=== PATIENT | female | born 1930 | race Caucasian/White ===

== ENCOUNTER 2018-04-15 11:23 | Inpatient (IN) | payer MEDICARE, OTHER ==
[2018-04-15 12:10] LABS: #Basophils 0.1 thou/uL (0.0-0.2); #Eosinphils 0.2 thou/uL (0.0-0.7); #Lymphocytes 2.7 thou/uL (1.20-3.40); #Monocytes 0.5 thou/uL (0.11-0.59); #Neutrophils 3.3 thou/uL (1.40-6.50); %Basophils 1.1 % (0.0-1.0); %Eosinophils 3.1 % (0.0-10.0); %Lymphocytes 40.1 % (21.0-51.0); %Neutrophils 48.7 % (42.0-75.0); Hemoglobin 11.7 g/dL (12.0-16.0); Mean Corpuscular HGB CONC 33.3 g/dL (32.0-36.0); Mean Corpuscular Hemoglobin 29.9 pg (27.0-31.0); Mean Corpuscular Volume 89.9 fL (78.0-98.0); Mean Platelet Volume 7.3 fL (7.4-10.4); Platelet Count 281 thou/uL (130-400); RBC Distribution Width 12.8 % (11.5-14.5); White Blood Cell (WBC) Count 6.9 thou/uL (4.8-10.8)
[2018-04-15 12:39] LABS: CKMB 1.8 ng/mL (0-6.6); Troponin I 0.035 ng/mL (< 0.028)
[2018-04-15 12:40] LABS: ALT (SGPT) 12 U/L (8-55); AST (SGOT) 21 U/L (5-34); Alkaline Phosphatase 115 U/L (40-150); Anion Gap 16 mmol/L (10-20); BUN (Urea Nitrogen) 18 mg/dL (9.8-20.1); Bilirubin, Total 0.4 mg/dL (0.2-1.2); Calc. Creatinine Clearance 0 mL/min (70-130); Calcium 9.2 mg/dL (7.8-10.44); Carbon Dioxide 19 mmol/L (23-31); Chloride 106 mmol/L (98-107); Estimated GFR-MDRD 57; Globulin 3.4 g/dL (2.4-3.5); Glucose 121 mg/dL (83-110); Potassium 4.4 mmol/L (3.5-5.1); Protein, Total 7.4 g/dL (6.0-8.3); Sodium 137 mmol/L (136-145)
--- NOTE | 2018-04-15 13:09 | CT ---
CT BRAIN WITHOUT CONTRAST: Date: 04/15/18 HISTORY: Unwitnessed fall, hit head, pain in back of head. FINDINGS: Comparison made with exam dated 09/02/16. Changes of cortical atrophy and chronic small vessel ischemic disease are again seen. The ventricular size is appropriate and the basilar cisterns are patent. No evidence of acute infarct, hemorrhage, m idline shift, or abnormal extra-axial fluid collections are seen. The bony calvarium is intact. A sca lp contusion is seen in the right posterior parietal region. IMPRESSION: No CT evidence of acute intracranial process. POS: [facility]
[2018-04-15 14:48] VITALS: BMI 25.6
[2018-04-15] MEDS ORDERED: Acetaminophen 325 MG TAB PO PRN (15:09)
[2018-04-15 16:00] LABS: Troponin I 0.056 ng/mL (< 0.028)
--- NOTE | 2018-04-15 16:39 | PDOC.EVN ---
Event Note - Event Note Event Note: patient moted to be in AV block by shelter monitor. transfer to CCU, spoke with Dr Gomez at bedside
--- NOTE | 2018-04-15 16:51 | ULT ---
CAROTID DOPPLER: Date: 04/15/18 Color Doppler with spectral analysis and velocity recordings were obtained on the extracranial caroti d arteries. INDICATION: TIA. FINDINGS: Ultrasound images show mild intimal thickening and echogenic plaque in both proximal ICAs. Velocity recordings are within normal range. No evidence of hemodynamically significant stenosis iden tified in either internal carotid artery. Vertebral arteries show antegrade flow. IMPRESSION: 1. Mild intimal thickening and echogenic plaque bilaterally. 2. No evidence of hemodynamically significant stenosis. POS: [facility]
--- NOTE | 2018-04-15 17:40 | PDOC.EVN ---
Event Note - Event Note Event Note: Prior events noted. Stable in CCU on external pacer. Discussed with patient and patient's daughter. Anticipate PPM in am.
[2018-04-15 18:03] LABS: Thyroid Stimulating Hormone 1.2645 uIU/mL (0.35-4.94)
[2018-04-15 18:04] LABS: T4 8.4 ug/dL (4.87-11.72)
[2018-04-15] MEDS: Dextrose 5 %-0.45 % NaCl 1,000 ML IV SCH (18:09)
[2018-04-15 18:35] VITALS: BP 147/74
[2018-04-15 19:08] LABS: Troponin I 0.067 ng/mL (< 0.028)
--- NOTE | 2018-04-15 21:37 | HP ---
CHIEF COMPLAINT: Fall. HISTORY OF PRESENT ILLNESS: This patient is an 88-year-old female who lives at the [facility]. She is in the assisted living portion. The patient was at her meal this morning and stood up fro m her chair and fell backwards back into her chair and bumping the back of her head up against a ston e wall. The patient reports that she did not lose consciousness at any point, although she was a bit stunned. She did feel a little dizzy or nauseated as soon as she bumped her head, but that resolved fairly quickly. shelter staff that there reported that she did not have any seizure type activ ity. EMS was called and the patient was brought to the hospital. She has no headache, chest pain, p alpitations, shortness of breath or other associated symptoms. REVIEW OF SYSTEMS: Completely negative. PAST MEDICAL HISTORY: Notable for TIA around 2011. She had a full workup at [facility] in [place] at th at time. There were no significant findings. She has hyperlipidemia, hypertension, hypothyroidism, some chronic vertigo. PAST SURGICAL HISTORY: Total hysterectomy, toe amputation, hiatal hernia repair, bladder suspension, hip replacement. FAMILY HISTORY: Not known. SOCIAL HISTORY: Patient is a nonsmoker and nondrinker. She lives at the [facility]. Her surroga te decision maker would be her daughter. She would like to be FULL CODE. Her physician is Dr. Jose carter. ALLERGIES: CODEINE, ERYTHROMYCIN BASE, MECLIZINE, PENICILLIN, PREDNISONE and SULFA. HOME MEDICATIONS: Still need to be confirmed with the senior living, but appeared to be aspirin 81 mg every day, levothyroxine 75 mcg every day, Lipitor 10 mg daily, omeprazole 40 mg every day, Zoloft 2 5 mg daily, Zyrtec 10 mg every day, Zantac 150 mg daily, magnesium oxide 2 p.o. daily, Lastacaft 0.25 % ophthalmic drops 2 drops both eyes every day, Dexilant 60 mg p.o. every day, azelastine spray pump 2 sprays both nostrils at bedtime. PHYSICAL EXAMINATION: VITAL SIGNS: Temperature is 97.9, pulse 88, respirations 20, O2 sat 96% on room air, BP is 188/78. GENERAL APPEARANCE: Age appropriate female, in no distress. She is awake, alert, oriented, pleasant , cooperative, mildly hard of hearing. HEENT: Reveals a 10 x 4 cm superficial hematoma on the right posterior scalp that is slightly tender . Pupils are equal and reactive. She has no OP lesions. NECK: Supple and symmetric. HEART: Regular rate and rhythm without murmurs, gallops or rubs. LUNGS: Clear to auscultation bilaterally with good chest wall expansion and air exchange. ABDOMEN: Flat, soft, nontender, nondistended, positive bowel sounds. EXTREMITIES: Warm and dry. NEUROLOGIC: The patient appears to be fully cognitive and appropriate. She has normal range of tee on and normal sensation and strength throughout and cranial nerves are intact. LABORATORY DATA AND IMAGING DATA: White count 6.9, hemoglobin 11.7, platelets 281. Sodium 137, pota ssium 4.4, chloride 106, CO2 19, BUN 18, creatinine 0.93, glucose 121. Troponin 0.35. BNP 246. EKG shows sinus rhythm, first degree AV block. ASSESSMENT AND PLAN: 1. Fall. It sounds like the patient simply fell from having some balance issues. That is where she believes happened. Given that there were no seizure activities and she did not lose consciousness, did not feel near syncopal, I suspect this is largely the case. We will go ahead and keep the patien t on a analytics lead. We will obtain echocardiogram and carotid Dopplers. It is possible this w as a TIA and needs to be appropriately evaluated. 2. Contusion to the posterior scalp secondary to fall injury. We will do serial neuro exams. I did discuss with the patient and her daughter the need to be concerned regarding subdural hematomas for the next couple of weeks. Fortunately, the patient is not on blood thinner medications. I need to c larify also the patient may be taking a low dose aspirin which is not significant more pending. 3. Hyperlipidemia. Continue with her usual home medications. 4. Hypothyroidism. Her TSH was reasonably good and likely not contributory to the current admission ; however, we will continue with her usual dose.
--- NOTE | 2018-04-15 23:58 | CON ---
DATE OF CONSULT: 04/15/18 HISTORY OF PRESENT ILLNESS: This is an 88-year-old woman, who presented with syncope. The patient has no previous cardiac history. She was apparently in her usual state of health when she suddenly fell down. She does not remember losing consciousness. The patient was brought to the hospital and admitted for further evaluation. During her hospitalization, the patient again became weak and was noted to have developed a slow heart rate. The patient did not completely lose consciousness. The patient denied having any chest pain or palpitations. PAST MEDICAL HISTORY: 1. Hypothyroidism. 2. GE reflux or dyslipidemia. PAST SURGICAL HISTORY: 1. Bladder suspension. 2. Hysterectomy. 3. Tonsillectomy. 4. Cataract surgery. 5. Hip replacement. SOCIAL HISTORY: Lives in [facility]. FAMILY HISTORY: No strong family history of heart disease. ALLERGIES: ERYTHROMYCIN, MECLIZINE, PENICILLIN, PREDNISONE, SULFA DRUGS. PHYSICAL EXAMINATION: GENERAL: This is an elderly woman in no acute distress. VITAL SIGNS: Blood pressure 188/78. NECK: Showed mild jugular venous distention. LUNGS: Clear to auscultation. HEART: Regular rate and rhythm, normal S1, S2, I/ systolic murmur. ABDOMEN: Nondistended. EXTREMITIES: No edema. LABORATORY RESULTS: Her sodium 137, potassium 4.4, chloride 106, bicarbonate 19, BUN 18, creatinine 0.93, glucose 123, troponin 0.056. Her white blood cell count is 6.9, hemoglobin 11.7, hematocrit 35.1, platelets are 281. Her EKG reveals her to have normal sinus rhythm with a first degree AV block. Telemetry monitoring revealed third degree AV block. IMPRESSION: 1. Syncope. 2. Third degree heart block. 3. History of hypothyroidism. This patient presents with a syncopal episode. She has marked prolonged third degree AV block. I have recommended proceeding with an electronic pacemaker. I discussed this with Dr. Vitale. He will perform this procedure.The patient will be monitored in the ICU. We will follow this patient with you through her hospitalization. Critical care note time 40 minutes ADMITTING/CONSULTING PHYSICIAN: Riya Birmingham M.D.. JANUSZ
--- NOTE | 2018-04-16 03:01 | CON ---
DATE OF CONSULTATION: 04/15/2018 SERVICE: Pulmonary Medicine. REASON FOR CONSULTATION: ICU patient. HISTORY OF PRESENT ILLNESS: Patient is an 88-year-old white female who was in her usual state of a [facility] until the day of admission. She had a presyncopal event. She stood up, got very, very lighthead ed. She sat down abruptly and struck the back of her head on an upright column. She does not think she lost consciousness and did not fall all the way to the ground. Either way, she was brought to [facility] emergency department because of a large hematoma in the back of her scalp. She denies any current fevers, chills, nausea or vomiting. She does not have any respiratory issues. She was being observe d on telemetry when she had a very long third degree AV block. She got lightheaded during this event and was subsequently transitioned to the ICU. She recovered normal sinus rhythm and her heart rate and blood pressure improved. She is being watched closely in the ICU. At this point, she is being p repared to undergo an internal pacemaker either today or tomorrow. She does not have any other speci fic complaints and currently denies any shortness of breath or lightheadedness. PAST MEDICAL HISTORY: 1. Hypothyroidism. 2. Gastroesophageal reflux disease. 3. Osteoarthritis. 4. Dyslipidemia. 5. Third degree AV block, new diagnosis. PAST SURGICAL HISTORY: 1. Hysterectomy. 2. Bladder suspension surgery. 3. Tonsillectomy. 4. Cataract surgery. 5. Right hip replacement. SOCIAL HISTORY: She is and lives in an assisted living facility. She has no exposure to mynor micals, dust asbestos, or tuberculosis. FAMILY HISTORY: Noncontributory. ALLERGIES: CODEINE, ERYTHROMYCIN, MECLIZINE, PENICILLIN, PREDNISONE, SULFA. MEDICATIONS: List of her inpatient medications was reviewed. I do not specifically identify any out patient rate control medications. REVIEW OF SYSTEMS: General, head, ears, eyes, nose, throat, cardiovascular, respiratory, GI, , mus culoskeletal, neurologic and skin is negative except as mentioned in the HPI. PHYSICAL EXAMINATION: VITAL SIGNS: Afebrile, pulse 84, blood pressure 154/78, respirations 20, saturation 100% on room air . GENERAL: The patient is awake, alert, no apparent distress. LUNGS: Excellent air entry with no prolonged expiratory phase, wheezing, rhonchi or crackles. HEART: Normal rate, regular. ABDOMEN: Soft, nontender, nondistended. Bowel sounds are positive. MUSCULOSKELETAL: No cyanosis or clubbing. There is no pitting in the bilateral lower extremities. NEUROLOGIC: Grossly nonfocal. LABORATORY DATA: WBC 6.9, hemoglobin 11.7, platelets 281,000. Basic metabolic profile, liver functi on studies are essentially unremarkable. Troponin is up trending to 0.067. TSH falls within normal limits, BNP 246. IMAGING: Echocardiogram demonstrates normal ejection fraction. Left ventricular size is normal. Th ere is mild mitral regurgitation, and moderate tricuspid regurgitation. ASSESSMENT: 1. Third degree atrioventricular block. 2. Presyncope. PLAN: The patient will remain in the ICU. We will monitor very closely on telemetry. If she has a prolonged vent, epinephrine drip, and/or dobutamine drip will be considered. If that does not contro l, external pacing may need to be done temporarily while we prepare for internal pacing. Cardiology and Electrophysiology are currently following. I will visit with her on a daily basis while she guera ins in the ICU.
[2018-04-16 04:25] LABS: #Eosinphils 0.2 thou/uL (0.0-0.7); #Lymphocytes 2.8 thou/uL (1.20-3.40); #Monocytes 0.6 thou/uL (0.11-0.59); #Neutrophils 2.9 thou/uL (1.40-6.50); %Basophils 0.5 % (0.0-1.0); %Eosinophils 3.7 % (0.0-10.0); %Lymphocytes 42.1 % (21.0-51.0); %Monocytes 9.1 % (0.0-10.0); %Neutrophils 44.6 % (42.0-75.0); Hemoglobin 11.2 g/dL (12.0-16.0); Mean Corpuscular HGB CONC 34.4 g/dL (32.0-36.0); Mean Corpuscular Hemoglobin 30.9 pg (27.0-31.0); Mean Corpuscular Volume 89.9 fL (78.0-98.0); Mean Platelet Volume 7.2 fL (7.4-10.4); Platelet Count 264 thou/uL (130-400); RBC Distribution Width 12.8 % (11.5-14.5); Red Blood Cell (RBC) Count 3.62 mill/uL (4.20-5.40); White Blood Cell (WBC) Count 6.5 thou/uL (4.8-10.8)
[2018-04-16 04:31] LABS: Anion Gap 13 mmol/L (10-20); BUN (Urea Nitrogen) 14 mg/dL (9.8-20.1); Calc. Creatinine Clearance 49 mL/min (70-130); Calcium 9.2 mg/dL (7.8-10.44); Carbon Dioxide 20 mmol/L (23-31); Chloride 108 mmol/L (98-107); Estimated GFR-MDRD 71; Glucose 105 mg/dL (83-110); Potassium 3.7 mmol/L (3.5-5.1); Sodium 137 mmol/L (136-145)
[2018-04-16] MEDS: Levothyroxine Sodium 75 MCG TAB PO SCH (05:54)
[2018-04-16] MEDS: Dextrose 5 %-0.45 % NaCl 1,000 ML IV SCH (05:55)
[2018-04-16] MEDS ORDERED: Iopamidol 370 76% 50 ML VIAL FS ONE (06:51)
[2018-04-16] MEDS ORDERED: Clindamycin/D5W 600 mg/50 ml Premix Bag ONE (07:03)
[2018-04-16] MEDS ORDERED: Levofloxacin 500 mg/D5W 100 ml Premix Bag ONE (07:03)
[2018-04-16] MEDS ORDERED: Fentanyl 100 MCG/2 ML VIAL ONE (07:59)
[2018-04-16] MEDS ORDERED: Lidocaine 1% (PF) 30 ML VIAL ONE (08:09)
[2018-04-16] MEDS: Atorvastatin Calcium 20 MG TAB PO SCH (09:33)
[2018-04-16] MEDS: Calcium Carbonate 500 MG ChewTAB PO SCH (09:33)
--- NOTE | 2018-04-16 10:58 | PDOC.PN ---
- Subjective Encounter Start Date: 04/16/18 Encounter Start Time: 10:56 Ms. Marie was seen today in follow-up of Third degree heart block. She is s /p pacemaker placement. she does not have any complaints. - Objective Resuscitation Status: Resuscitation Status FULL:Full Resuscitation MAR Reviewed: Yes Vital Signs & Weight: Vital Signs (12 hours) Temp Pulse Ox 04/16/18 10:24 96 04/16/18 09:00 97.9 F 04/16/18 04:00 97.8 F 04/15/18 23:00 98.0 F Weight Weight 125 lb 10.616 oz Most Recent Monitor Data Heart Rate from ECG 71 NIBP 94/67 NIBP BP-Mean 87 Respiration from ECG 19 SpO2 100 I&O: 04/15/18 04/16/18 04/17/18 06:59 06:59 06:59 Intake Total 775 Output Total 650 150 Balance 125 -150 Result Diagrams: 04/16/18 03:27 04/16/18 03:30 Additional Labs: Accuchecks 04/15/18 12:19 POC Glucose 120 H Phys Exam - Physical Examination HEENT: PERRLA Respiratory: no wheezing, no rales, no rhonchi, clear to auscultation bilateral Cardiovascular: RRR, no significant murmur, no rub Gastrointestinal: soft, non-tender, positive bowel sounds Musculoskeletal: no edema Dx/Plan (1) Third degree AV block Code(s): I44.2 - ATRIOVENTRICULAR BLOCK, COMPLETE Status: Acute (2) Pre-syncope Status: Acute (3) Hypertension Code(s): I10 - ESSENTIAL (PRIMARY) HYPERTENSION Status: Chronic - Plan * 3rd degree AV- block- she is s/p Pace-maker placement- * HTN- blood pressure is on the lower normal side- will monitor. * Possibly home tomorrow- if stable
--- NOTE | 2018-04-16 12:43 | PRG ---
DATE OF SERVICE: 04/16/2018 SERVICE: Pulmonary Medicine INTERVAL HISTORY: The patient is doing absolutely fantastic from a respiratory standpoint. No fever s, chills, nausea or vomiting. This morning, she ended up having another event where she went into a third degree heart block. She spontaneously recovered from that. She did get lightheaded again, bu t did not have any need for pacing. Ultimately, she went down for a pacemaker this afternoon. Since then, she has not had any issues. She denies any chest discomfort, nausea, vomiting, fevers or chil ls. Otherwise, she feels good. PHYSICAL EXAMINATION: VITAL SIGNS: Afebrile, pulse 77, blood pressure 94/67, respirations 19, saturation 100% on room air. GENERAL: The patient is awake and alert, in no apparent distress. LUNGS: There is excellent air entry with no prolonged expiratory phase, wheezing, rhonchi or crackle s. HEART: Normal rate, regular. ABDOMEN: Soft, nontender, nondistended. Bowel sounds positive. MUSCULOSKELETAL: No cyanosis or clubbing. There is no pitting in the bilateral lower extremities. NEUROLOGIC: Grossly nonfocal. ASSESSMENT: 1. Third degree atrioventricular block. 2. Presyncope. 3. Status post pacemaker placement. DISCUSSION AND PLAN: The patient has undergone her pacemaker placement. She is stable for transitio n to the telemetry unit. Pulmonary Critical Care will continue to follow along if she remains in thi s location.
--- NOTE | 2018-04-16 13:26 | RAD ---
AP CHEST: History: Post pacemaker placement. Comparison: 10-05-14 FINDINGS: Dual-lead pacemaker has been placed near the left subclavian base. Leads appear adequately positioned . The lungs are clear with no infiltrate or pneumothorax. Heart size upper normal with aortic calcifi cation noted. Degenerative changes of both shoulders. IMPRESSION: No acute abnormality. POS: [facility]
[2018-04-16] MEDS: Clindamycin 150 MG CAP PO SCH (23:04)
[2018-04-17] MEDS: Levothyroxine Sodium 75 MCG TAB PO SCH (06:50)
[2018-04-17] MEDS: Clindamycin 150 MG CAP PO SCH ×2 (06:50→10:13)
--- NOTE | 2018-04-17 08:10 | PDOC.PN ---
- Subjective Encounter Start Date: 04/17/18 Encounter Start Time: 08:08 Ms. Marie was seen today in follow-up of 3rd degree heart block. She is post pacemaker placement. She did not have any complaints when I asked. She denies chest or shoulder pain. She denies dyspnea. - Objective Resuscitation Status: Resuscitation Status FULL:Full Resuscitation MAR Reviewed: Yes Vital Signs & Weight: Vital Signs (12 hours) Temp Pulse Ox 04/17/18 06:26 95 04/17/18 04:00 98.0 F 04/17/18 00:41 95 04/17/18 00:00 97.6 F Weight Weight 130 lb 15.273 oz Most Recent Monitor Data Heart Rate from ECG 78 NIBP 114/58 NIBP BP-Mean 92 Respiration from ECG 17 SpO2 93 I&O: 04/16/18 04/17/18 04/18/18 06:59 06:59 06:59 Intake Total 775 860 Output Total 650 1375 Balance 125 -515 Result Diagrams: 04/16/18 03:27 04/16/18 03:30 Phys Exam - Physical Examination HEENT: PERRLA Respiratory: no wheezing, no rales, no rhonchi, clear to auscultation bilateral Cardiovascular: RRR, no significant murmur Gastrointestinal: soft, non-tender, positive bowel sounds Musculoskeletal: no edema Dx/Plan (1) Third degree AV block Code(s): I44.2 - ATRIOVENTRICULAR BLOCK, COMPLETE Status: Acute (2) Pre-syncope Status: Acute (3) Hypertension Code(s): I10 - ESSENTIAL (PRIMARY) HYPERTENSION Status: Chronic - Plan * 3rd Degree AV block- she is s/p Pacemaker placement * HTN- blood pressure is stable * Possible home soon, when cleared by Cardiology/EP.
--- NOTE | 2018-04-17 08:51 | CON ---
DATE OF CONSULTATION: 04/16/2018 ELECTROPHYSIOLOGY CONSULTATION REFERRING PHYSICIAN: Dr. Grant HISTORY OF PRESENT ILLNESS: I am seeing Ms. Marie at our [facility] ICU as an electrophysiology learning consultant and her problems are: 1. Syncopal spell. 2. Paroxysmal complete AV block documented at telemetry. 3. Structurally normal heart with LVEF 55%-60%, mild MR, mild to moderate TR. 4. History of TIA in 2011. 5. History of hypothyroidism. 6. Chronic vertigo. 7. History of hypertension and hyperlipidemia. ALLERGIES: CODEINE, ADRIAMYCIN, MECLIZINE, PENICILLIN, PREDNISONE and SULFA. MEDICATIONS: At home included aspirin, levothyroxine, Lipitor, omeprazole, Zoloft, Zyrtec, Zantac, magnesium oxide, Lastacaft ophthalmic drops and Dexilant , azelastine. SUBJECTIVE: Ms. Marie is here due to syncopal spell. She is living in an assisted living facility and while having her meal this morning, she stood up from a chair and fell backwards bumping her back and her head against the stone wall. The patient reports that she did not completely lose consciousness, but felt very nauseated for a while, which completely resolved. No seizure-like activity is noted. No chest pains, dyspnea or other neurological symptoms associated with this event. Rest of 12-point system was unremarkable. No acute signs of CHF, angina, infections are noted. PAST MEDICAL HISTORY: As above. SOCIAL HISTORY: Patient is a nonsmoker, nondrinker, lives in [facility]. Denies drug use. Her daughter is her decision maker. Her primary care physician is Dr. Clark. OBJECTIVE DATA: VITAL SIGNS: Blood pressure is 120/47, heart rate 62, respiration is 19, and temperature is 97.8 degrees Fahrenheit. GENERAL: Alert and oriented woman in no apparent distress. NECK: Supple. Jugular veins not distended. CHEST: Coarse without crackles. CARDIOVASCULAR: Heart sounds are regular to rate and rhythm. No murmur or gallop. ABDOMEN: Benign. Bowel sounds positive. EXTREMITIES: Lower extremities without edema, clubbing or cyanosis. Pulses are adequate. NEUROLOGIC: Patient nonfocal. MUSCULOSKELETAL: No joint swelling or deformities. SKIN: Without rash. DATABASE: The EKG reviewed, is in sinus rhythm at rate of 84 beats per minute, narrow QRS, ME is 210 milliseconds, left axis deviation is seen. 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 Telemetry strips do reveal episodic complete AV block. Continued atrial activity P waves seen throughout and a junctional/ventricular escape beats interrupting the ventricular standstill, duration of these episodes are 5 seconds and there is another episode rates almost lasted 10 seconds. LABORATORY DATA: White count 6.5, hemoglobin 11.2, platelet count is 264. Sodium 137, potassium 3.7, BUN is 40, creatinine 0.77. The troponin I 0.056 and 0.067. BNP is 246. The TSH was 1.264. The head CT was negative for acute processes. Carotid Doppler was no evidence of hemodynamically significant stenosis bilaterally. The 2D echo as above. ASSESSMENT AND PLAN: Ms. Marie is a very pleasant 88-year-old woman with no major cardiac history presenting with progressive dizzy spells and near syncopal spells. She has a document complete atrioventricular block. There is no obvious reason for her to go into complete atrioventricular block, based on her medication profile. I do not see any obvious reversible factors here. She clearly would benefit from dual chamber pacemaker to maintain atrioventricular synchrony during these events, which could be progressive in the future as well. 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 The pacemaker procedure was discussed in detail with the patient and her family and some chance of infection, bleeding, pneumothorax, tamponade, device malfunction recalls proceeding with the pacemaker at the nearest time. Thank you again for allowing me to participate in the care of this patient. JANUSZ
[2018-04-17] MEDS ORDERED: Docusate 100 MG CAP PO SCH (09:00)
[2018-04-17] MEDS: Atorvastatin Calcium 20 MG TAB PO SCH (10:12)
[2018-04-17] MEDS: Calcium Carbonate 500 MG ChewTAB PO SCH (10:13)
[2018-04-17] MEDS ORDERED: Fleet Enema 133 ML BOT PR PRN (10:19)
[2018-04-17] MEDS ORDERED: Milk Of Magnesia 30 ML UDCUP PO PRN (10:19)
[2018-04-17] MEDS ORDERED: HYDROcodone/Acetaminophen 5/325 mg Tablet PO PRN ×3 (11:03→11:15)
--- NOTE | 2018-04-17 11:41 | PRG ---
DATE OF SERVICE: 04/17/2018 SERVICE: Pulmonary Medicine INTERVAL HISTORY: The patient is doing fine from a respiratory standpoint. She has not had any sync opal events. She denies any chest pain, nausea, vomiting, fevers or chills. She is a little unstead y on her feet. Otherwise, there has been no interval change to her condition; however. She is pleas ed that she gets to get out of the hospital stay. PHYSICAL EXAMINATION: VITAL SIGNS: Afebrile, pulse 74, blood pressure 104/34, respirations 17, saturation 94% on room air. GENERAL: The patient is awake, alert, in no apparent distress. LUNGS: Excellent air entry. No prolonged expiratory phase. HEART: Normal rate, regular. ABDOMEN: Soft, nontender, nondistended. Bowel sounds are positive. MUSCULOSKELETAL: No cyanosis or clubbing. No pitting in the bilateral lower extremities. NEUROLOGIC: Grossly nonfocal. IMAGING: Chest x-ray demonstrates interval placement of dual lead pacemaker. No evidence of pneumot horax is present. ASSESSMENT: 1. Third degree atrioventricular block. 2. Presyncope, status post pacemaker placement. DISCUSSION AND PLAN: The patient is doing absolutely wonderful from a respiratory standpoint. From my perspective, she is stable for transition to the telemetry unit or discharge today. Pulmonary Cri tical Care will continue to follow if she remains in this location, however.
[2018-04-17 13:20] VITALS: TEMP 97.4
--- NOTE | 2018-04-17 13:57 | DIS ---
DATE OF ADMISSION: 04/15/2018 DATE OF DISCHARGE: 04/17/2018 PRIMARY CARE PHYSICIAN: Gavino Clark M.D. DISCHARGE DISPOSITION: Back to the assisted living facility. DISCHARGE DIAGNOSES: 1. Third degree heart block. 2. Presyncope secondary to #1. 3. Hypertension. 4. Hypothyroidism. 5. Hyperlipidemia. 6. Gastroesophageal reflux disease. DISCHARGE MEDICATIONS: Include clindamycin 300 mg q.6 for 7 days, Zantac 150 mg at bedtime, Zoloft 5 0 mg daily, pseudoephedrine 30 mg as needed, multivitamin once a day, magnesium oxide 400 mg twice a day, Milk of Magnesia as needed, Imodium 2 mg as directed, levothyroxine 75 mcg daily, Nexium 40 mg d aily, Dexilant 60 mg daily, vitamin D 2000 units a day, Zyrtec 5 mg at bedtime, Astelin nasal spray a s well as Astelin ophthalmic, Lipitor 20 mg daily, aspirin 81 mg daily and Tylenol as needed. PROCEDURES DONE DURING ADMISSION: The patient had bilateral carotid Dopplers, which was negative for any flow limiting disease. CT scan of the brain was also negative for any acute intracranial proces s. The patient had an echocardiogram in which the ejection fraction was estimated at 55%-60%. There was normal left atrial size. Left ventricular size was normal and the patient had a pacemaker place d and she had a dual chamber pacemaker placed. CODE STATUS: FULL CODE. ALLERGIES: CODEINE, ERYTHROMYCIN BASE, MECLIZINE, PENICILLIN, PREDNISONE and SULFA as well as MECLIZ INE. HOSPITAL COURSE: Ms. Marie is a very pleasant 88-year-old female who was brought to the emergen cy room after she suffered a fall at home in the assisted living facility. She had hit the back of h er head and the family wanted to bring her in to get checked out. During her stay in observation, sh e was ruled out for possible stroke-like symptoms in the process of having the carotid Dopplers and t est done to rule out stroke. She was found to have third degree AV block. She also had an episode w here she was extremely dizzy and almost fell again. She was seen by Cardiology as well as electrophy siologist and it was recommended that she undergo the placement of a dual chamber pacemaker, this was done. The patient had an uneventful postoperative course. Third degree AV block was likely the faby son for her fall. The patient is currently clinically stable and can be discharged to the assisted l iving facility. She says she has quite a bit of help with home health nurse in addition to the [facility]. She is to follow up with Dr. Grant and Dr. Vitale as instructed and also with her prima care physician in a couple of weeks.
[2018-04-17] MEDS ORDERED: Clindamycin 150 MG CAP PO SCH (14:00)
== END 2018-04-17 13:04 | DRG 244 ==
LOC: ERS 11:23 → 2SW 13:38 → OBSVTOIN 16:36 → CCU 16:42
PROVIDERS: ADMIT Internal Medicine; ATTEND Internal Medicine
PROC: 0JH606Z Insertion of Pacemaker, Dual Chamber into Chest Subcutaneous Tissue and Fascia, Open Approach (ICD-10-PCS; principal; 2018-04-16)
PROC: 02H63JZ Insertion of Pacemaker Lead into Right Atrium, Percutaneous Approach (ICD-10-PCS; 2018-04-16)
PROC: 02HK3JZ Insertion of Pacemaker Lead into Right Ventricle, Percutaneous Approach (ICD-10-PCS; 2018-04-16)
DX: I44.2 Atrioventricular block, complete (principal); S00.03XA Contusion of scalp, initial encounter; Z86.73 Personal history of transient ischemic attack (TIA), and cerebral infarction without residual deficits; E78.5 Hyperlipidemia, unspecified; I10 Essential (primary) hypertension; E03.9 Hypothyroidism, unspecified; Z96.641 Presence of right artificial hip joint; Z88.6 Allergy status to analgesic agent; Z88.0 Allergy status to penicillin; Z88.2 Allergy status to sulfonamides; Z88.8 Allergy status to other drugs, medicaments and biological substances; W18.30XA Fall on same level, unspecified, initial encounter; Z95.0 Presence of cardiac pacemaker; K21.9 Gastro-esophageal reflux disease without esophagitis; Z79.82 Long term (current) use of aspirin
CPT/HCPCS: 33208; 36415; 36416; 70450; 71045; 80048; 80053; 82553; 83880; 84436; 84443; 84484; 85025; 93005; 93010; 93306; 93880; 94760; C1785; C1898; J1956; J2001; J3010; J3490

== ENCOUNTER 2018-04-24 10:06 | Emergency (ER) | payer MEDICARE, OTHER ==
[2018-04-24 10:40] LABS: #Eosinphils 0.5 thou/uL (0.0-0.7); #Lymphocytes 2.6 thou/uL (1.20-3.40); #Monocytes 0.5 thou/uL (0.11-0.59); #Neutrophils 2.1 thou/uL (1.40-6.50); %Basophils 0.7 % (0.0-1.0); %Eosinophils 8.4 % (0.0-10.0); %Lymphocytes 45.1 % (21.0-51.0); %Monocytes 8.1 % (0.0-10.0); %Neutrophils 37.7 % (42.0-75.0); Hemoglobin 10.8 g/dL (12.0-16.0); Mean Corpuscular Hemoglobin 31.4 pg (27.0-31.0); Mean Corpuscular Volume 89.7 fL (78.0-98.0); Mean Platelet Volume 6.5 fL (7.4-10.4); Platelet Count 235 thou/uL (130-400); RBC Distribution Width 13.3 % (11.5-14.5); Red Blood Cell (RBC) Count 3.46 mill/uL (4.20-5.40); White Blood Cell (WBC) Count 5.7 thou/uL (4.8-10.8)
[2018-04-24 10:48] LABS: PTT 32.8 SEC (22.9-36.1); Prothrombin Time 13.6 SEC (12.0-14.7)
[2018-04-24 10:50] LABS: D-Dimer Test 2.87 *mcg/mL (0.27-0.43)
--- NOTE | 2018-04-24 10:54 | RAD ---
CHEST ONE VIEW: History: Pacemaker placement. Dyspnea. Comparison: 04-16-18 FINDINGS: Cardiac silhouette and pulmonary vasculature are unremarkable. Mediastinum is midline with aortic brian cification and a dual-lead left subclavian cardiac electronic device. No lobar consolidation or evide nce of pneumothorax. Degenerative changes of the shoulders and thoracic spine. IMPRESSION: 1. Atherosclerosis. Chronic type findings are stable. 2. No active cardiopulmonary abnormalities are demonstrated. POS: [facility]
[2018-04-24 10:58] LABS: ALT (SGPT) 14 U/L (8-55); AST (SGOT) 20 U/L (5-34); Albumin 3.8 g/dL (3.4-4.8); Alkaline Phosphatase 120 U/L (40-150); Anion Gap 11 mmol/L (10-20); BUN (Urea Nitrogen) 13 mg/dL (9.8-20.1); Bilirubin, Total 0.5 mg/dL (0.2-1.2); Calc. Creatinine Clearance 0 mL/min (70-130); Calcium 9.1 mg/dL (7.8-10.44); Carbon Dioxide 23 mmol/L (23-31); Chloride 107 mmol/L (98-107); Estimated GFR-MDRD 67; Glucose 97 mg/dL (83-110); Potassium 4.1 mmol/L (3.5-5.1); Protein, Total 6.8 g/dL (6.0-8.3); Sodium 137 mmol/L (136-145)
[2018-04-24 11:04] LABS: CKMB 2.1 ng/mL (0-6.6); Troponin I Less than 0.010 ng/mL (< 0.028)
[2018-04-24 12:12] LABS: Bilirubin Negative (Negative); Blood, Urine Negative (Negative); Clarity CLEAR (Clear); Glucose, Urine (Dipstick) Negative (Negative); Leukocyte Negative (Negative); Nitrite Negative (Negative); Protein, Urine (Dipstick) Negative (Neg-Trace); Specific Gravity, Urine 1.005 (1.002-1.036); Urobilinogen 0.2 mg/dL (0.2-1.0); pH, Urine 7.5 (5.0-9.0)
--- NOTE | 2018-04-24 13:11 | ULT ---
VENOUS DUPLEX SONOGRAM BILATERAL LOWER EXTREMITY: Date: 04/24/18 HISTORY: Bilateral leg pain and edema. Dyspnea. FINDINGS: Each common femoral vein and greater saphenous junction, femoral, deep femoral, popliteal, and supply chain systems manager ior tibial vein were valuated. There is good color and spectral Doppler flow, compression, and augmen tation. IMPRESSION: No sonographic evidence of deep venous thrombosis within either lower extremity. POS: [facility]
== END 2018-04-24 13:46 | disposition home or self-care (01) ==
LOC: ERS 10:06
DX: R42 Dizziness and giddiness (principal); E03.9 Hypothyroidism, unspecified; E78.5 Hyperlipidemia, unspecified; D64.9 Anemia, unspecified; F32.9 Major depressive disorder, single episode, unspecified; M19.90 Unspecified osteoarthritis, unspecified site; Z86.79 Personal history of other diseases of the circulatory system; Z79.82 Long term (current) use of aspirin; Z79.899 Other long term (current) drug therapy
CPT/HCPCS: 36415; 71045; 80053; 81003; 82553; 83880; 84484; 85025; 85379; 85610; 85730; 93005; 93970; 94760

== ENCOUNTER 2018-12-08 09:56 | Outpatient (CLI) | payer MEDICARE, OTHER ==
--- NOTE | 2018-12-10 11:11 | MMO ---
Bilateral MAMMO Bilat Screen [facility]. CLINICAL HISTORY: Patient is 88 years old and is seen for screening. The patient has a history of left Excisional Biopsy in 1991 - benign. VIEWS: The views performed were: . FILMS COMPARED: The present examination has been compared to prior imaging studies performed at [facility] on 03/25/1998, 06/29/1999, 07/09/2000, 07/14/2001, 07/27/2002, 07/28/2003, 08/08/2004, 08/14/2005, 08/14/2006, 10/03/2007, 10/05/2008, 10/26/2009, 11/23/2011, 12/08/2012, 12/25/2013, 01/03/2015, 01/18/2016 and 04/22/2017. MAMMOGRAM FINDINGS: There are scattered fibroglandular densities. There are stable benign appearing calcifications seen in both breasts. There are no suspicious masses, calcifications or areas of architectural distortion. There are no suspicious masses, suspicious calcifications, or new areas of architectural distortion. IMPRESSION: THERE IS NO MAMMOGRAPHIC EVIDENCE OF MALIGNANCY. A ROUTINE FOLLOW-UP MAMMOGRAM IN 1 YEAR IS RECOMMENDED. THE RESULTS OF THIS EXAM WERE SENT TO THE PATIENT. ACR BI-RADS Category 2 - Benign finding MAMMOGRAPHY NOTE: 1. A negative mammogram report should not delay a biopsy if a dominant of clinically suspicious mass is present. 2. Approximately 10% to 15% of breast cancers are not detected by mammography. 3. Adenosis and dense breasts may obscure an underlying neoplasm.
== END 2018-12-08 09:57 | disposition home or self-care (01) ==
LOC: BICMAMMO 09:56
PROVIDERS: ATTEND Family Medicine
DX: Z12.31 Encounter for screening mammogram for malignant neoplasm of breast (principal)
CPT/HCPCS: 77063; 77067

== ENCOUNTER 2019-02-21 22:35 | Emergency (ER) | payer MEDICARE, OTHER ==
--- NOTE | 2019-02-21 23:47 | CT ---
CT HEAD WITHOUT CONTRAST: 02/21/19 Multiple axial tomograms were obtained through the head without IV enhancement. INDICATIONS: Trauma. COMPARISON: 04/15/18. Ventricles have normal size and position. No mass or hemorrhage. No infarct. No acute process. IMPRESSION: No acute intracranial abnormality. POS: [facility]
[2019-02-22] MEDS ORDERED: Lidocaine 1% w/Epinephrine 1:100K 20 ML VIAL ONE (00:47)
[2019-02-22] MEDS ORDERED: Adacel (T-DAP) 0.5 ML SYRINGE ONE (02:09)
== END 2019-02-22 02:30 | disposition home or self-care (01) ==
LOC: ERS 22:35
DX: S01.81XA Laceration without foreign body of other part of head, initial encounter (principal); E03.9 Hypothyroidism, unspecified; E78.5 Hyperlipidemia, unspecified; F32.9 Major depressive disorder, single episode, unspecified; Z79.899 Other long term (current) drug therapy; W22.8XXA Striking against or struck by other objects, initial encounter
CPT/HCPCS: 12011; 70450; 90471; 90715; J2001

== ENCOUNTER 2019-05-16 14:02 | Emergency (ER) | payer MEDICARE, OTHER ==
[2019-05-16] MEDS ORDERED: Acetaminophen 325 MG TAB ONE (14:43)
--- NOTE | 2019-05-16 15:03 | RAD ---
EXAM: XR Wrist 3 Rt View STANDARD PROVIDED CLINICAL HISTORY: Pain and swelling COMPARISON: None FINDINGS: Widening of the scapholunate distance compatible with scapholunate insufficiency. Radiocarpal joint s pace narrowing. First CMC degenerative changes are conspicuous. No evidence for fracture. IMPRESSION: 1. Scapholunate ligamentous insufficiency. 2. First CMC degenerative change.
== END 2019-05-16 15:35 | disposition home or self-care (01) ==
LOC: SCSER 14:02
DX: M24.231 Disorder of ligament, right wrist (principal); E03.9 Hypothyroidism, unspecified; E78.5 Hyperlipidemia, unspecified; Z86.73 Personal history of transient ischemic attack (TIA), and cerebral infarction without residual deficits; F32.9 Major depressive disorder, single episode, unspecified; Z79.899 Other long term (current) drug therapy

== ENCOUNTER 2019-11-23 22:22 | Emergency (ER) | payer MEDICARE, OTHER ==
[2019-11-23 23:07] LABS: Hemoglobin 11.8 g/dL (12.0-16.0); Mean Corpuscular HGB CONC 33.9 g/dL (32.0-36.0); Mean Corpuscular Hemoglobin 31.4 pg (27.0-31.0); Mean Corpuscular Volume 92.7 fL (78.0-98.0); RBC Distribution Width 12.7 % (11.5-14.5); Red Blood Cell (RBC) Count 3.75 mill/uL (4.20-5.40)
--- NOTE | 2019-11-23 23:07 | RAD ---
Portable chest: HISTORY: Mental status change COMPARISON: 04/24/2018 FINDINGS: Lung rogers are clear. Heart and mediastinum appear unremarkable. Vascularity is normal. Pacemaker leads unchanged. Severe degenerative changes at both shoulders again noted. IMPRESSION: No acute finding
[2019-11-23 23:15] LABS: ALT (SGPT) 15 U/L (8-55); AST (SGOT) 17 U/L (5-34); Albumin 3.5 g/dL (3.4-4.8); Alkaline Phosphatase 108 U/L (40-110); Anion Gap 12 mmol/L (10-20); BUN (Urea Nitrogen) 17 mg/dL (9.8-20.1); Bilirubin, Total 0.3 mg/dL (0.2-1.2); Calc. Creatinine Clearance 0 mL/min (70-130); Calcium 8.4 mg/dL (7.8-10.44); Carbon Dioxide 23 mmol/L (23-31); Chloride 105 mmol/L (98-107); Estimated GFR-MDRD 46; Globulin 3.1 g/dL (2.4-3.5); Glucose 126 mg/dL (83-110); Lipase 119 U/L (8-78); Potassium 3.8 mmol/L (3.5-5.1); Protein, Total 6.6 g/dL (6.0-8.3); Sodium 136 mmol/L (136-145)
[2019-11-23 23:33] LABS: Band 2 % (5-11); Eosinophils 2 % (0-10); Lymphocytes 48 % (21-51); MDiff Complete? YES; Mean Platelet Volume 6.4 fL (7.4-10.4); Monocytes 7 % (0-10); Neutrophil 41 % (42-75); Platelet Count 336 thou/uL (130-400); White Blood Cell (WBC) Count 6.3 thou/uL (4.8-10.8)
[2019-11-23 23:35] LABS: CKMB 3.2 ng/mL (0-6.6)
--- NOTE | 2019-11-23 23:46 | CT ---
CT HEAD WITHOUT CONTRAST: Indications: Mental status change. Comparison: 02-21-19 FINDINGS: Ventricles have normal size and position. There is mild cortical volume loss. Mild chronic ischemic w mere matter change. No evidence of mass, edema, or hemorrhage. No evidence of acute infarct. Sinuses and mastoids are pravin ar. IMPRESSION: No acute findings. POS: [facility]
[2019-11-24 00:28] LABS: Bacteria/HPF None Seen HPF (None Seen); Bilirubin Negative (Negative); Blood, Urine Negative (Negative); Clarity Clear (Clear); Glucose, Urine (Dipstick) Normal (Negative); Leukocyte 75 Leu/uL (Negative); Nitrite Negative (Negative); Protein, Urine (Dipstick) 10 mg/dL (Neg-Trace); RBC/HPF 0-3 HPF (0-3); Squamous Epithelial None Seen HPF (0-3); Urobilinogen Normal mg/dL (Less than 2)
[2019-11-24 01:46] LABS: Troponin I 0.011 ng/mL (< 0.028)
== END 2019-11-24 01:28 ==
LOC: ERS 22:22
DX: N39.0 Urinary tract infection, site not specified (principal); E03.9 Hypothyroidism, unspecified; E78.5 Hyperlipidemia, unspecified
CPT/HCPCS: 36415; 36416; 70450; 71045; 80053; 81003; 81015; 82553; 83690; 83735; 84443; 84484; 85025; 87086; 93005

== ENCOUNTER 2020-08-30 14:01 | Emergency (ER) | payer MEDICARE, OTHER ==
--- NOTE | 2020-08-30 14:38 | CT ---
CT head noncontrast HISTORY: Head injury. COMPARISON: 04/24/2020. FINDINGS: There is no evidence of acute intracranial hemorrhage or infarct. Diffuse cortical atrophy and mild chronic ischemic small vessel disease are similar in appearance to the prior exam. There is no mass effect or shift of midline structures. Dystrophic calcification at each basal ganglia is s table. Visualized paranasal sinuses remain well aerated. IMPRESSION : No acute abnormalities are demonstrated.
[2020-08-30] MEDS ORDERED: Boostrix 0.5 ML (Tdap) VIAL ONE (15:27)
[2020-08-30] MEDS ORDERED: Bacitracin 1 PK ONE (15:27)
== END 2020-08-30 15:55 | disposition home or self-care (01) ==
LOC: ERS 14:01
DX: S01.01XA Laceration without foreign body of scalp, initial encounter (principal); D64.9 Anemia, unspecified; E03.9 Hypothyroidism, unspecified; E78.5 Hyperlipidemia, unspecified; Z86.73 Personal history of transient ischemic attack (TIA), and cerebral infarction without residual deficits; Z79.899 Other long term (current) drug therapy; W01.0XXA Fall on same level from slipping, tripping and stumbling without subsequent striking against object, initial encounter
CPT/HCPCS: 12001; 70450; 90471; 90715